=== PATIENT | female | born 1940 | race Caucasian/White ===

== ENCOUNTER 2023-10-18 09:53 | Emergency (ER) | payer MEDICARE, OTHER, SELFPAY ==
[2023-10-18 09:55] VITALS: BP 102/73; PULSE 120; RESP 14; TEMP 36.6; O2SAT 94
--- NOTE | 2023-10-18 10:10 | CT_ITS ---
STUDY: CT BRAIN WITHOUT CONTRAST REASON FOR EXAM: Female, 83 years old. Altered mental status RADIATION DOSAGE (If Supplied By Facility): CTDIvol = ( 44.99 ) mGy, DLP = ( 779.24 ) mGycm TECHNIQUE: Transaxial CT imaging of the brain was performed without administration of intravenous contrast material. Individualized dose optimization techniques were used for this CT. COMPARISON: No relevant priors. FINDINGS: Normal soft tissue structures. Normal calvarium. There is mild cerebral atrophy with widening of the extra-axial spaces and ventricular dilatation. There are areas of decreased attenuation within the white matter tracts of the supratentorial brain, consistent with microvascular disease changes. Normal basal ganglia and thalami. Normal brainstem. Normal cerebellum. There is no intracranial hemorrhage. There are no findings of an acute ischemic infarction. Atherosclerotic calcification of the cavernous portions of the internal carotid arteries bilaterally. Normal visualized paranasal sinuses. CT/Brain/Head without Contrast IMPRESSION: Chronic involutional changes of the brain. Electronically Signed: Kodi Lanier MD at 11:08 EST ,
--- NOTE | 2023-10-18 10:10 | EKG12_ITS ---
Test Reason : SOB Blood Pressure : / mmHG Vent. Rate : 122 BPM Atrial Rate : 122 BPM P-R Int : 144 ms QRS Dur : 058 ms QT Int : 290 ms P-R-T Axes : 063 068 064 degrees QTc Int : 413 ms Sinus tachycardia Nonspecific ST abnormality Abnormal ECG Confirmed by ALBA LAW, JAN ([id number]), assignment editor SRAVANI JOSHI ([id number]) on 10/19/2023 9:32:04 AM Referred By: Confirmed By:JAN WILLIS MD
--- NOTE | 2023-10-18 10:10 | RAD_ITS ---
STUDY: X-RAY CHEST REASON FOR EXAM: Female, 83 years old. Weakness TECHNIQUE: Single AP portable view of the chest. COMPARISON: None. FINDINGS: EKG electrodes are seen. Questionable 1 cm nodule at the right lung base. There is no demonstrated pleural abnormality. Normal size heart. Normal mediastinum and ani. Normal visualized pulmonary arteries. There is atherosclerotic calcification of the aortic arch with tortuosity. Normal visualized thoracic spine. Normal visualized ribs, clavicles, and shoulders. Findings suggestive of a hiatal hernia. RAD/Chest 1 View (Portable) IMPRESSION: Questionable 1 cm nodule at the right lung base. Hiatal hernia. Electronically Signed: Kodi Lanier MD at 11:14 [facility] ,
--- NOTE | 2023-10-18 10:12 | EX.ED.DYSGE1 ---
HPI History of Present Illness Chief Complaint: Alt LOC Informant: patient and EMS Narrative Narrative: Patient brought by EMS because his of having an altered level of consciousness/mental status. History is extremely limited and not available from the patient who is the only one present at this time. Apparently she recently was in rehab and discharged to home with her daughter. Patient is altered this morning and was sent by her daughter to the emergency department. Apparently concerns for dehydration. [facility] Medical History Acute kidney failure Dementia Depression Diverticulitis Encephalopathy HLD (hyperlipidemia) HTN (hypertension) Hyponatremia Muscle weakness (generalized) Home Medications cephalexin 500 mg capsule 500 mg PO Q6 #40 CAPSULES 10/18/23 [Rx Last Taken Unknown] Allergy/AdvReac Type Severity Reaction Status Date / Time No Known Allergies Allergy Verified 10/18/23 09:54 Social History Smoking Status: Never smoker ROS ROS ED Review of Systems ROS Unobtainable: due to mental status EXAM Physical Exam Const Vital Signs: 10/18/23 09:55 10/18/23 11:54 10/18/23 13:00 Temperature 97.9 F Temperature Source Temporal Pulse Rate 120 H 117 H 117 H Respiratory Rate 14 18 16 Blood Pressure 102/73 116/78 117/78 Blood Pressure Mean 82 90 91 Pulse Ox 94 96 Oxygen Delivery Method Room Air Room Air 10/18/23 15:00 Temperature Temperature Source Pulse Rate 115 H Respiratory Rate 16 Blood Pressure 124/78 H Blood Pressure Mean 93 Pulse Ox 96 Oxygen Delivery Method Room Air Positive well nourished and well developed General Appearance ED: well developed and NAD HEENT Reports moist mucous membranes normocephalic and atraumatic Eyes PERRL and EOMs intact bilaterally Neck full ROM and supple Chest Wall inspection of chest normal and palpation of chest normal Resp normal respiratory effort and clear to auscultation bilaterally Cardio regular rate, regular rhythm and no murmurs Rate: tachycardic GI non-tender and non-distended Auscultation: normoactive bowel sounds Palpation: soft Back/Spine no CVA tenderness Extremity normal to inspection General Extremety ED: Negative for edema, pulses abnormal or tenderness General Extremity: Negative for edema or pulses abnormal Neuro CN's II-XII intact bilaterally and no sensory deficits noted Neuro Narrative: Moving all 4 extremities but basically just wiggling fingers and toes. Would not follow commands. Jah Coma Scale: document GCS findings Spontaneous Localizes to Pain Incomprehensible 11 Sensorium / Orientation: awake, alert and orientation impaired Motor Exam: general weakness Skin no rashes or lesions noted and no wounds MDM MDM MDM Narrative Medical decision making narrative: Wide differential including infectious, metabolic, hematologic, [employer] etiologies. Patient difficult to examine since she is so encephalopathic/confused. Seems to be neurologically intact peripherally. CT of the head obtained is negative for any acute I reviewed the images and report which I agree with, she has a mild leukocytosis, prerenal azotemia, empirically given IV fluids for that while waiting in the workup, vital signs remained normal except for tachycardia, her initial blood pressure was 102/73 this was a little better after the fluids at 116/78 and her heart rate decreased a little. EKG shows no injury and her troponin is negative. During this process, daughter who cares for her at home arrived. 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 She has been caring for her since she has been home. The wound was debrided 2 days prior to discharge home with daughter, and she states she has been doing dressing changes, she has taken off work on [employer] for 12 weeks to care for her mom at home, she has not established with a doctor locally yet, and yesterday the wound started to smell although generally it is looking a little better now than it was status postdebridement. It is red around it. The patient is constantly leaning over to keep pressure off of it as she has been doing in the ER. I examined the wound with the nurse, there is surrounding erythema, granulation tissue present, 2 cm in diameter and subcutaneous in depth without purulent discharge able to be expressed although there is drainage on the dressing which we are changing. I think it would be reasonable to treat this as a possible infection in the source of her mild leukocytosis, she is given a dose of IV Zosyn here, but in the end I do not think she has to be admitted for this, the wound is not very deep and I am not concerned about bone involvement, there is only subcutaneous fat visible along with granulation tissue within the wound. She is not complaining of pain there. Daughter is comfortable with outpatient oral antibiotics and taking her home, we discussed palliative care. She is in agreement that she has severe dementia and continues to decline functionally. Her mental status is very poor, she can tell is her first name and no other words. Daughter states this is the house she has been for the last month or more. She is amenable to discussing with palliative care and/or hospice. We are attempting to set that up for her but in the end, plan will be to discharge home. If she needs a PCP in addition to hospice if accepted to the service, we will refer her. Hospice evaluating in the emergency department. Lab Data Attestation: I reviewed the patient's lab results. Labs: Laboratory Results - last 24 hr 10/18/23 10/18/23 10:25 13:15 WBC 11.4 H RBC 3.71 L Hgb 10.6 L Hct 34.3 L MCV 92.5 MCH 28.6 MCHC 30.9 L RDW Std Deviation 46.8 H RDW Coeff of [place] 13.7 Plt Count 424 MPV 9.7 Immature Gran % (Auto) 2.600 H Neut % (Auto) 78.0 H Lymph % (Auto) 9.2 L [place] % (Auto) 7.7 Eos % (Auto) 1.7 Baso % (Auto) 0.8 Absolute Neuts (auto) 8.9 H Absolute Lymphs (auto) 1.05 Nucleated RBC % 0 Sodium 138 Potassium 3.7 Chloride 104 Carbon Dioxide 29.0 Anion Gap 5 BUN 15 Creatinine 0.61 Estim Creat Clear Calc 34.02 Est GFR (MDRD) Af Amer 120 Est GFR (MDRD) Non-Af 99 BUN/Creatinine Ratio 24.5 H Glucose 120 H Lactic Acid 0.7 Calcium 8.7 Total Bilirubin 0.30 AST 27 ALT 25 Alkaline Phosphatase 86 Troponin I High Sens 7 Total Protein 6.4 Albumin 2.1 L Globulin 4.3 H Albumin/Globulin Ratio 0.5 L Urine Color Yellow Urine Clarity Clear Urine pH 6.0 Ur Specific [place] 1.010 Urine Protein Negative Urine Glucose (UA) Normal Urine Ketones 5 H Urine Occult Blood Negative Urine Nitrite Negative Urine Bilirubin Negative Urine Urobilinogen Normal Ur Leukocyte Esterase Negative Urine RBC 0 SEEN Urine WBC 0-5 SEEN Ur Squamous Epith Cells 5-10 SEEN Urine Bacteria RARE Urine Mucus 0 SEEN Radiography Diagnostic Testing: Clinical Impression(s) from Imaging Studies Brain CT 10/18/23 10:10 IMPRESSION: Chronic involutional changes of the brain. Electronically Signed: Kodi Lanier MD at 11:08 EST , Chest X-Ray 10/18/23 10:10 IMPRESSION: Questionable 1 cm nodule at the right lung base. Hiatal hernia. Electronically Signed: Kodi Lanier MD at 11:14 EST , Rhythm Strip Rhythm Strip: Sinus Tach Rate: 120 Ectopy: None EKG Initial EKG: Attestation: I personally reviewed and interpreted this EKG as follows: Interpretation: No Acute Injury Pattern and Sinus Tachycardia Management Discussion w/another healthcare provider: animal care worker/Case management Discharge Plan Triage Chief Complaint: Alt LOC ED Provider: oJhan Avila Dx/Rx/DC Orders Clinical Impression: Declining functional status, Wound of sacral region, Wound infection, Dementia, Bedridden Instructions: ED DEMENTIA Alzheimer's, ED Wound Check (Infection) Prescriptions: New cephalexin [cephalexin] 500 mg capsule 500 mg PO Q6 Qty: 40 0RF Primary Care Provider: Care Physician,No Primary Referrals: NOT,DEFINED [Non-Staff] - Disposition Disposition: Home, Self Care
--- NOTE | 2023-10-18 10:14 | NURSING ---
NO OLD EKGS
[2023-10-18] MEDS: 0.9% Normal Saline (1000mL) 1,000 ML 1000 ML IV (10:32)
[2023-10-18 10:35] VITALS: BMI 20.5
[2023-10-18 10:38] LABS: Absolute Lymphocyte Count 1.05 X10^3/uL (0.83-4.51); Absolute Neutrophil Count 8.9 X10^3/uL (2.0-7.7); Basophil# 0.09 X10^3/uL; Basophil% 0.8 % (0-1); Eosinophil# 0.19 X10^3/uL; Eosinophils% 1.7 % (0-5); Hematocrit 34.3 % (37-47); Hemoglobin 10.6 g/dL (12.0-15.0); Lymphocyte # 1.05 X10^3/ul (0.83-4.51); Lymphocyte % 9.2 % (19-41); Mean Corp Hgb Conc 30.9 g/dL (32-36); Mean Corpuscular Hgb 28.6 pg (27.0-32.0); Mean Corpuscular Volume 92.5 fL (81-99); Mean Platelet Vol. 9.7 fl (6.2-12.0); Monocyte# 0.88 X10^3/uL; Monocyte% 7.7 % (0-10); NRBC Flagged by Analyzer 0 % (0-5); Neutrophil # 8.89 X10^3/uL (2.7-7.7); Platelet Count 424 K/mm3 (150-450); RBC Distribution Width CV 13.7 % (11.6-14.6); RBC Distribution Width SD 46.8 fl (35.1-43.9); Red Blood Count 3.71 M/mm3 (4.2-5.4); White Blood Count 11.4 K/mm3 (4.4-11.0)
[2023-10-18 11:07] LABS: ALB/GLOB Ratio 0.5 RATIO (0.9-2.4); AST(SGOT) 27 U/L (15-37); Alanine Aminotransfer ALT/SGPT 25 U/L (13-56); Albumin, Serum 2.1 g/dL (3.2-5.0); Alkaline Phosphatase 86 U/L (45-117); Anion Gap 5 (5-15); BUN 15 mg/dL (7-18); BUN/Creat Ratio 24.5 RATIO (10-20); Calcium,Total 8.7 mg/dL (8.5-10.1); Chloride 104 mmol/L (98-107); Creatinine, Serum 0.61 mg/dL (0.55-1.02); EST Glomerular Filtration Rate 99 mL/min (>60); Est Glom Filt Rate - Afr Amer 120 mL/min (>60); Estimated Creatinine Clearance 34.02 ml/min; Globulin 4.3 g/dL (2.2-4.2); Glucose 120 mg/dL (74-106); Potassium 3.7 mmol/L (3.5-5.1); Protein, Total 6.4 g/dL (6.4-8.2); Sodium Level 138 mmol/L (136-145); Troponin-I HS 7 pg/mL (3.0-54.0)
[2023-10-18 11:09] LABS: Lactic Acid 0.7 mmol/L (0.4-1.9)
[2023-10-18 11:54] VITALS: BP 116/78; PULSE 117; RESP 18
--- NOTE | 2023-10-18 12:54 | CM.ED ---
Addendum entered by Nel Tee 10/18/23 15:02: Social Work SW called [facility] to confirm referral and determine course of action. [facility] reports speaking with the daughter and the hospice nurse will be in the ED to meet with them within 30 minutes. Nel RUBY, MORE Original Note: Social Work SW received consult for palliative/hospice care. SW spoke with [facility] and faxed requested documents for review. Pt pending review. Nel RUBY, MORE
[2023-10-18 13:00] VITALS: BP 117/78; PULSE 117; RESP 16; O2SAT 96
[2023-10-18] MEDS: Piperacil/Tazobactam 3.375 GM in 0.9% Normal Saline (50mL MB+) 50 ML IV (13:10)
[2023-10-18 13:21] LABS: Mucous, Urine 0 SEEN /hpf (<or=2+); Red Blood Cells-Urine 0 SEEN /hpf (0-5)
[2023-10-18 13:24] LABS: Color, Urine Yellow (Yellow); Glucose, Dipstick Normal (Normal); Ketone-Dipstick 5 mg/dl (Negative); Leukocyte Esterase-Dipstick Negative /ul (Negative); Nitrite-Dipstick Negative (Negative); Occult Blood-Urine Negative /ul (Negative); Protein-Dipstick Negative (Negative); Urine Bilirubin Dipstick Negative (Negative); Urine Clarity Clear (Clear); Urine Urobilinogen Normal (Normal)
[2023-10-18 13:34] LABS: Bacteria RARE /hpf (None Seen); Squamous Epithelial Cells - UA 5-10 SEEN /hpf (5-10); White Blood Cells 0-5 SEEN /hpf (0-5)
[2023-10-18 15:00] VITALS: BP 124/78; PULSE 115; RESP 16; O2SAT 96
[2023-10-18 18:39] VITALS: BP 130/101
== END 2023-10-18 18:39 | disposition home or self-care (01) ==
PROVIDERS: Emergency Provider Emergency Medicine; Visit Provider Emergency Medicine
DX: L89.159 Pressure ulcer of sacral region, unspecified stage (principal); F03.90 Unspecified dementia, unspecified severity, without behavioral disturbance, psychotic disturbance, mood disturbance, and anxiety; I10 Essential (primary) hypertension; Z74.01 Bed confinement status; E78.5 Hyperlipidemia, unspecified; R55 Syncope and collapse; R41.82 Altered mental status, unspecified
CPT/HCPCS: 36415; 70450; 71045; 80053; 81001; 83605; 84484; 85025; 87040; 87428; 93005; 96361; 96365; 99285; J7030; A4216